=== PATIENT | female | born 1960 | race Asian ===

== ENCOUNTER 2023-02-27 09:22 | Emergency (ER) | payer OTHER ==
--- NOTE | 2023-02-27 10:05 | ED Physician Documentation ---
PD HPI OPHTHO - Stated complaint Stated Complaint: LT EYE PX,OLIVIER - Chief complaint Chief Complaint: Heent - History obtained from History obtained from: Patient - History of Present Illness Timing - onset: How many weeks ago (1) Timing - duration: Weeks (1) Timing - details: Gradual onset, Still present Location: Left Quality / character: Burning Associated symptoms: Redness, Tearing, FB sensation (has had irritated "genevieve" feeling left eye few days. Initally irritated and watery/red, without known FB nor exposure. No URI symptoms. RIght eye without symptoms. Does not wear contacts.). No: Swelling, Discharge Contributing factors: Wears glasses. No: Recent URI, FB, Wears contacts Similar symptoms before: Has not had sx before Recently seen: Clinic (seen at [facility] and Rx pnatanol drops (antihistamine), cetirizine, and Refresh drops. Pt using them without improvement in symtpoms.) Review of Systems Constitutional: denies: Fever, Chills Eyes: reports: Irritation. denies: Loss of vision, Decreased vision, Photophobia, Discharge (watering but no crusting/matting.) Nose: denies: Rhinorrhea / runny nose, Congestion Throat: denies: Sore throat Respiratory: denies: Cough PD PAST MEDICAL HISTORY - Past Medical History Past Medical History: Yes - Past Surgical History Past Surgical History: No - Present Medications Home Medications: Ambulatory Orders Medication Instructions Recorded Confirmed Meclizine [Antivert] 25 mg PO Q6H PRN #20 tablet 04/09/16 Ondansetron Odt [Zofran] 4 mg TL Q6H PRN #10 tablet 04/09/16 Neomycin Buitrago/Baci Zn/Poly/Hc 1 applic LEFTEYE QID 4 Days #3.5 gm 02/27/23 [Eduardo-Polycin Hc Eye Ointment] - Allergies Allergies/Adverse Reactions: Allergies Allergy/AdvReac Type Severity Reaction Status Date / Time No Known Drug Allergies Allergy Verified 02/27/23 09:30 - Social History Does the pt smoke?: No Smoking Status: Never smoker Does the pt drink ETOH?: Yes Does the pt have substance abuse?: No - Immunizations Immunizations are current?: No Immunizations: TDAP >10years/unknown PD ED PE NORMAL - Vitals Vital signs reviewed: Yes - General General: Alert and oriented X 3, Well developed/nourished - HEENT HEENT: PERRL, EOMI PD ED PE EXPANDED - Eyes Eyes: PERRL, EOMI, Left eye, Injected conj/sclera (left eye with hyperemia. ), Anterior chambers clear, Normal fundi, Other (IOP 11. ). No: Eyelid swelling, Eyelid erythema, Exudate, Corneal abrasion, Fluorescein uptake Results - Vitals Vitals: Vital Signs - 24 hr 02/27/23 02/27/23 09:27 11:15 Temperature 36.4 C L 36.5 C Heart Rate 69 62 Respiratory 20 18 Rate Blood Pressure 117/86 H 119/79 O2 Saturation 99 100 Oxygen O2 Source Room air PD Medical Decision Making - ED course Complexity details: considered differential (redness and irritation of left eye. no discharge but is watery. However not improved with anithistamines PO/topical and only the one eye. Normal IOP. No dye uptake. Normal fundal. No skin rash. Can treat for possible bacterial/inflammatory. ), d/w patient Departure - Departure Disposition: 01 Home, Self Care Clinical Impression: Conjunctivitis, left eye Condition: Stable Follow-Up: Epi Edwards MD [Provider Admit Priv/Credential] - SAURAV MATA DO [Primary Care Provider] - Cecy Rosenthal MD [Provider Admit Priv/Credential] - Prescriptions: Neomycin Buitrago/Baci Zn/Poly/Hc [Eduardo-Polycin Hc Eye Ointment] 1 applic LEFTEYE QID 4 Days #3.5 gm Comments: You can discontinue the Rupa I will antihistamine eyedrops. Continue with the Zyrtec oral antihistamines. Continue with the refresh lubricating eyedrops 4 times daily. Add the antibiotic/steroid eyedrops 4 times daily as directed over the next 3 to 4 days. Follow-up with environmental management specialist if not improved well over the next several days and resolved by 3 to 5 days. I sent a prescription to the [facility]. Forms: PCP List Discharge Date/Time: 02/27/23 11:15
[2023-02-27 11:18] VITALS: BP 119/79; O2SAT 100
== END 2023-02-27 11:15 | disposition home or self-care (01) ==
LOC: ED 09:22
DX: H10.9 Unspecified conjunctivitis (principal)
CPT/HCPCS: 99282; 99283